=== PATIENT | female | born 2000 | race Caucasian/White ===

== ENCOUNTER → 2022-10-29 16:14 | Outpatient (BNVA) | payer SELFPAY | PROVIDERS: Family Provider Nurse Practitioner Family; PCP Nurse Practitioner Family; Visit Provider Nurse Practitioner Family | DX: S89.92XA Unspecified injury of left lower leg, initial encounter (principal); M79.672 Pain in left foot; X58.XXXA Exposure to other specified factors, initial encounter | CPT/HCPCS: 73562; 73630 ==